=== PATIENT | male | born 1990 | race Two or more races ===

== ENCOUNTER 2019-12-02 19:01 | Emergency (ER) | payer SELFPAY ==
--- NOTE | 2019-12-02 20:25 | NUR ---
CALLED TO TRIAGE NO ANSWER
--- NOTE | 2019-12-02 20:45 | NUR ---
LEFT WIHTOUT BEING TRIAGED
== END 2019-12-02 20:45 | disposition left against medical advice (07) ==
LOC: ER 19:10
DX: Z53.21 Procedure and treatment not carried out due to patient leaving prior to being seen by health care provider (principal); R05 Cough

== ENCOUNTER 2019-12-31 21:46 | Emergency (ER) | payer MEDICAID ==
[~2019-12-31] VITALS: Ht 200.7 cm; Wt 149.7 kg
[2019-12-31 21:53] VITALS: BP 151/87
== END 2019-12-31 23:32 | disposition home or self-care (01) ==
LOC: ER 21:52
DX: H61.22 Impacted cerumen, left ear (principal); R03.0 Elevated blood-pressure reading, without diagnosis of hypertension

== ENCOUNTER 2020-05-19 14:12 | Emergency (ER) | payer MEDICAID, OTHER ==
[~2020-05-19] VITALS: Ht 203.2 cm; Wt 155.6 kg
--- NOTE | 2020-05-19 14:14 | NUR ---
PT BIBRA FROM HOME TO ER BED 01. PER EMS REPORT, WITNESSED SEIZURE BY FRIENDS. PT ENDORSES THAT HE STARTED HAVING SEIZURES 2 MONTHS AGO AND HE HAD A TOTAL OF 3 SEIZURES THE PAST 2 WEEKS. PT IS NOT ON ANY SEIZURE MEDS. PT IIS ALERT AND VERBALLY RESPONSIVE. GOWNED AND PLACED ON MONITOR. STABLE VITALS. AWAITING MD SON.
--- NOTE | 2020-05-19 14:46 | NUR ---
DR MERCER AT BEDSIDE FOR EVAL.
[2020-05-19] MEDS ORDERED: IV NS 0.9% 1,000 ML BAG IV ONE (15:00)
[2020-05-19] MEDS ORDERED: LEVETIRACETAM (500MG) 500 MG in IV NS 0.9% 100 ML IV ONE (15:00)
--- NOTE | 2020-05-19 15:04 | NUR ---
PT TO RADIOLOGY FOR HEAD CT SCAN VIA [facility].
[2020-05-19 15:30] LABS: BASOPHILS # (AUTO) 0.1 /CMM (0.0-0.2); BASOPHILS % (AUTO) 0.5 % (0.0-2.0); EOSINOPHILS % (AUTO) 1.7 % (0.0-6.0); HEMATOCRIT 44 % (39-51); HEMOGLOBIN 14.8 g/dL (13.5-17.5); LYMPHOCYTES # (AUTO) 2.1 /CMM (0.8-4.8); LYMPHOCYTES % (AUTO) 20.9 % (20.0-44.0); MEAN CORPUSCULAR HGB CONC 33 g/dl (31.0-36.0); MEAN CORPUSCULAR VOLUME 87 fL (80-96); MONOCYTES # (AUTO) 0.7 /CMM (0.1-1.30); MONOCYTES % (AUTO) 7.2 % (2.0-12.0); NEUTROPHILS % (AUTO) 69.7 % (43.0-81.0); PLATELET COUNT (AUTO) 235 /CMM (150-450); RED BLOOD CELL COUNT(AUTO) 5.13 MIL/uL (4.5-6.0); WHITE BLOOD COUNT (AUTO) 10.1 K/uL (4.3-11.0)
[2020-05-19 15:36] LABS: CARBON DIOXIDE 28 mmol/L (21-32); CHLORIDE 103 mmol/L (98-107); GLUCOSE 139 mg/dL (74-106); POTASSIUM 4.1 mmol/L (3.5-5.1); SODIUM SERUM 138 mmol/L (136-145); UREA NITROGEN, BLOOD 10 mg/dL (7-18)
[2020-05-19 15:50] LABS: ALANINE AMINOTRANSFERASE 47 U/L (12-78); ALBUMIN 3.7 g/dL (3.4-5.0); ALKALINE PHOSPHATASE 48 U/L (46-116); ASPARTATE AMINOTRANSFERASE 19 U/L (15-37); BILIRUBIN,DIRECT 0.2 mg/dL (0.0-0.2); BILIRUBIN,TOTAL 0.6 mg/dL (0.2-1.0)
[2020-05-19 15:51] LABS: ALCOHOL, BLOOD < 3 mg/dL (0-0)
--- NOTE | 2020-05-19 16:36 | NUR ---
Patient does not wish to proceed with medical care recommended by Dr. Jasso. Patient given information related to possible complications, up to and including , which could occur as a result of leaving the hospital at this time. Patient verbalizes understanding of risks involved due to leaving against medical advice. Patient has signed AMA form. IV removed. Catheter intact and site benign. Pressure and 4x4 applied to site. No bleeding noted.
[2020-05-19 16:37] VITALS: BP 135/78
== END 2020-05-19 16:38 | disposition left against medical advice (07) ==
LOC: ER 14:15
DX: R56.9 Unspecified convulsions (principal); R41.0 Disorientation, unspecified
CPT/HCPCS: 36415; 70450; 71045; 80048; 80076; 80307; 85025; 85730; 93005; 96361; 96365; 99285; J1953; J7030 ×2; 87081-TC; G0480

== ENCOUNTER 2020-08-24 21:28 | Emergency (ER) | payer OTHER ==
[~2020-08-24] VITALS: Ht 203.2 cm; Wt 145.1 kg
--- NOTE | 2020-08-24 21:28 | NUR ---
BIBEMS C/O SEIZURE X2 WITNESSED BY FAMILY. 1ST SEIZURE @ 1400 PER PT REPORT N/V X2 TODAY. PT AAOX4, NO ORAL TRAUMA, NO URINARY/BOWEL INCONTINENCE NOTED;PT TO BED2, SZ PRECAUTIONS STARTED. -SOB, VSS, NAD NOTED, PENDIGN ER PROVIDER ADELAIDA
[2020-08-24] MEDS ORDERED: LEVETIRACETAM (250 MG) 250 MG TABLET PO ONE ×2 (21:41→22:00)
--- NOTE | 2020-08-24 23:02 | NUR ---
Patient discharged to home in stable condition. Written and verbal after care instructions given. Patient verbalizes understanding of instruction. IV removed. Catheter intact and site benign. Pressure and 4x4 applied to site. No bleeding noted.
[2020-08-25 00:37] VITALS: BP 122/84
== END 2020-08-24 23:02 | disposition home or self-care (01) ==
LOC: ER 21:31
DX: R56.9 Unspecified convulsions (principal)

== ENCOUNTER 2020-09-30 03:42 | Emergency (ER) | payer OTHER ==
[~2020-09-30] VITALS: Ht 203.2 cm; Wt 149.7 kg
[2020-09-30 04:01] VITALS: BP 155/94
[2020-09-30 06:37] LABS: ABG OXYGEN SATURATION 95.6 % (92.0-98.5); ABG PCO2 40.2 mmHg (35.0-45.0); ABG PH 7.406 (7.350-7.450); AaDO2 21.6 mmHg; COHb 0.1 % (0.5-1.5); MetHb 0.4 % (0.0-1.5); O2Hb 95.1 % (94.0-97.0); SITE, ABG Right Radial; VENT MODE, BG Room Air
== END 2020-09-30 05:45 | disposition home or self-care (01) ==
LOC: ER 03:47
DX: T59.811A Toxic effect of smoke, accidental (unintentional), initial encounter (principal); R11.0 Nausea; R51.9 Headache, unspecified; Y92.89 Other specified places as the place of occurrence of the external cause
CPT/HCPCS: 36600

== ENCOUNTER 2021-02-06 18:22 | Emergency (ER) | payer OTHER ==
[~2021-02-06] VITALS: Ht 203.2 cm; Wt 149.7 kg
--- NOTE | 2021-02-06 18:46 | NUR ---
BIBS WITH GIRLFRIEND TO ER BED 4. AAOX4. NOT IN RESP DISTRESS, BREATHING EVEN AND UNLABORED. AMBULATORY. CAME IN FOR L SIDED CHEST PAIN STARTED YESTERDAY. PT RATES PAIN 3/10 SHARP RADIATING TO NECK. DENIES SOB. DENIES N/V/D. PROVIDER AT BEDSIDE FOR EVAL. EKG AT BEDSIDE. ORDERS RECEIVED, NOTED AND CARRIED OUT.
[2021-02-06] MEDS ORDERED: IV NS 0.9% 1,000 ML BAG IV ONE (19:00)
[2021-02-06 19:53] LABS: ALANINE AMINOTRANSFERASE 109 U/L (12-78); ALBUMIN 3.4 g/dL (3.4-5.0); ALKALINE PHOSPHATASE 67 U/L (46-116); ASPARTATE AMINOTRANSFERASE 42 U/L (15-37); BILIRUBIN,DIRECT 0.1 mg/dL (0.0-0.2); BILIRUBIN,TOTAL 0.5 mg/dL (0.2-1.0); CALCIUM, SERUM 9.4 mg/dL (8.5-10.1); CARBON DIOXIDE 29 mmol/L (21-32); CHLORIDE 99 mmol/L (98-107); GLUCOSE 296 mg/dL (74-106); SODIUM SERUM 135 mmol/L (136-145); TOTAL PROTEIN, SERUM 6.7 g/dL (6.4-8.2); UREA NITROGEN, BLOOD 11 mg/dL (7-18)
[2021-02-06 20:02] LABS: BASOPHILS % (AUTO) 0.4 % (0.0-2.0); EOSINOPHILS % (AUTO) 2.6 % (0.0-6.0); HEMATOCRIT 47 % (39-51); HEMOGLOBIN 15.7 g/dL (13.5-17.5); LYMPHOCYTES # (AUTO) 2.6 /CMM (0.8-4.8); LYMPHOCYTES % (AUTO) 22.9 % (20.0-44.0); MEAN CORPUSCULAR HGB CONC 33 g/dl (31.0-36.0); MEAN CORPUSCULAR VOLUME 85 fL (80-96); MONOCYTES # (AUTO) 0.7 /CMM (0.1-1.30); NEUTROPHILS # (AUTO) 7.7 /CMM (1.8-8.9); NEUTROPHILS % (AUTO) 68.1 % (43.0-81.0); PLATELET COUNT (AUTO) 209 /CMM (150-450); RED BLOOD CELL COUNT(AUTO) 5.53 MIL/uL (4.5-6.0); WHITE BLOOD COUNT (AUTO) 11.3 K/uL (4.3-11.0)
[2021-02-07 00:02] VITALS: BP 159/96
== END 2021-02-07 00:02 | disposition home or self-care (01) ==
LOC: ER 18:25
DX: R07.89 Other chest pain (principal); E11.9 Type 2 diabetes mellitus without complications; G40.909 Epilepsy, unspecified, not intractable, without status epilepticus; F10.10 Alcohol abuse, uncomplicated; E66.9 Obesity, unspecified; Y90.9 Presence of alcohol in blood, level not specified; Z68.36 Body mass index [BMI] 36.0-36.9, adult
CPT/HCPCS: 36415; 71045; 80048; 80076; 84484 ×2; 85025; 85378; 93005 ×2; 96360; 99285; J7030

== ENCOUNTER 2021-03-08 00:42 | Emergency (ER) | payer OTHER ==
[~2021-03-08] VITALS: Ht 203.2 cm; Wt 145.1 kg
--- NOTE | 2021-03-08 00:49 | NUR ---
BIBS FOR C/O L SIDED SHRAP CP , 06/14, RADIATING TO LUE AND L SHOULDER SINCE 1499. + SOB. PT AMBULATORY TO BED 1 ER. WAS PLACED ON A MONITOR .
[2021-03-08 01:16] LABS: BASOPHILS # (AUTO) 0.1 /CMM (0.0-0.2); BASOPHILS % (AUTO) 0.6 % (0.0-2.0); EOSINOPHILS % (AUTO) 4.6 % (0.0-6.0); HEMATOCRIT 46 % (39-51); HEMOGLOBIN 15.1 g/dL (13.5-17.5); LYMPHOCYTES # (AUTO) 3.6 /CMM (0.8-4.8); LYMPHOCYTES % (AUTO) 30.4 % (20.0-44.0); MEAN CORPUSCULAR HGB CONC 33 g/dl (31.0-36.0); MEAN CORPUSCULAR VOLUME 86 fL (80-96); MONOCYTES # (AUTO) 0.7 /CMM (0.1-1.30); NEUTROPHILS # (AUTO) 6.9 /CMM (1.8-8.9); NEUTROPHILS % (AUTO) 58.4 % (43.0-81.0); PLATELET COUNT (AUTO) 223 /CMM (150-450); RED BLOOD CELL COUNT(AUTO) 5.29 MIL/uL (4.5-6.0); WHITE BLOOD COUNT (AUTO) 11.7 K/uL (4.3-11.0)
[2021-03-08 01:26] LABS: CALCIUM, SERUM 8.8 mg/dL (8.5-10.1); CARBON DIOXIDE 29 mmol/L (21-32); CHLORIDE 101 mmol/L (98-107); CREATININE 0.9 mg/dL (0.6-1.3); GLUCOSE 212 mg/dL (74-106); SODIUM SERUM 136 mmol/L (136-145); UREA NITROGEN, BLOOD 9 mg/dL (7-18)
[2021-03-08] MEDS ORDERED: CT SWABBABLE VALVE TRANS SET 1 EA INFUS.SET MC ONE (01:35)
[2021-03-08] MEDS ORDERED: IOHEXOL-300 100 ML VIAL IV ONE (01:35)
[2021-03-08] MEDS ORDERED: IV NS 0.9% 250 ML IV ONE (01:35)
--- NOTE | 2021-03-08 01:39 | NUR ---
PATIENT TAKEN TO CAT SCAN
[2021-03-08 01:42] LABS: ALANINE AMINOTRANSFERASE 98 U/L (12-78); ALBUMIN 3.8 g/dL (3.4-5.0); ALKALINE PHOSPHATASE 75 U/L (46-116); ASPARTATE AMINOTRANSFERASE 31 U/L (15-37); B-TYPE NATRIURETIC PEPTIDE 136 PG/ML (0-125); BILIRUBIN,DIRECT 0.1 mg/dL (0.0-0.2); BILIRUBIN,TOTAL 0.3 mg/dL (0.2-1.0); TOTAL PROTEIN, SERUM 6.9 g/dL (6.4-8.2)
--- NOTE | 2021-03-08 01:54 | NUR ---
PATIENT RETURNED FROM CTA SCAN.
--- NOTE | 2021-03-08 03:21 | NUR ---
pt cleared for discharge per dr. medina. pt received discharge instructions. pt verbalized understanding. pt iv removed, iv catheter intact. pressure gauze applied. no active bleeding noted. pt ambulatory with steady gait.
[2021-03-08 03:54] VITALS: BP 144/78
== END 2021-03-08 03:55 | disposition home or self-care (01) ==
LOC: ER 00:44
DX: R07.89 Other chest pain (principal); E11.9 Type 2 diabetes mellitus without complications; F10.10 Alcohol abuse, uncomplicated; Y90.9 Presence of alcohol in blood, level not specified
CPT/HCPCS: 36415; 71045; 71275; 80048; 80076; 83880; 84484; 85025; 85730; 93005 ×2; 99285; J7050; Q9967

== ENCOUNTER 2021-04-08 | Emergency (ER) | payer OTHER ==
[~2021-04-08] VITALS: Ht 203.2 cm; Wt 145.1 kg
[2021-04-08] MEDS: ASPIRIN 81 MG TAB.CHEW PO ONE (00:30)
--- NOTE | 2021-04-08 00:38 | NUR ---
PATIENT TO ER BED 9 C/O LEFT SIDED CHEST PAIN THAT RADIATES SHARPLY TO THE LEFT ARM AND SHOULDERS SINCE 0900 OF TODAY. PATIENT STATES THAT HE TAKES METFORMIN AT HOME. PATIENT IS ALERT AND ORIENTED X4. DENIES SHORTNESS OF BREATH. CONNECTED TO THE CARIDAC MONITOR.
[2021-04-08 00:40] LABS: BASOPHILS # (AUTO) 0.1 /CMM (0.0-0.2); BASOPHILS % (AUTO) 0.4 % (0.0-2.0); EOSINOPHILS % (AUTO) 2.2 % (0.0-6.0); HEMATOCRIT 46 % (39-51); HEMOGLOBIN 15.2 g/dL (13.5-17.5); LYMPHOCYTES # (AUTO) 4.2 /CMM (0.8-4.8); LYMPHOCYTES % (AUTO) 30.3 % (20.0-44.0); MEAN CORPUSCULAR HGB CONC 33 g/dl (31.0-36.0); MEAN CORPUSCULAR VOLUME 86 fL (80-96); MONOCYTES # (AUTO) 0.8 /CMM (0.1-1.30); NEUTROPHILS # (AUTO) 8.4 /CMM (1.8-8.9); NEUTROPHILS % (AUTO) 61.1 % (43.0-81.0); PLATELET COUNT (AUTO) 221 /CMM (150-450); RED BLOOD CELL COUNT(AUTO) 5.34 MIL/uL (4.5-6.0); WHITE BLOOD COUNT (AUTO) 13.7 K/uL (4.3-11.0)
--- NOTE | 2021-04-08 00:41 | NUR ---
XRAY AT BEDSIDE
[2021-04-08 00:46] LABS: CALCIUM, SERUM 9.3 mg/dL (8.5-10.1); CARBON DIOXIDE 27 mmol/L (21-32); CHLORIDE 103 mmol/L (98-107); CREATININE 0.9 mg/dL (0.6-1.3); GLUCOSE 155 mg/dL (74-106); POTASSIUM 3.8 mmol/L (3.5-5.1); SODIUM SERUM 141 mmol/L (136-145); UREA NITROGEN, BLOOD 11 mg/dL (7-18)
[2021-04-08] MEDS ORDERED: ASPIRIN 81 MG TAB.CHEW ONE (00:51)
[2021-04-08 01:03] LABS: ALANINE AMINOTRANSFERASE 74 U/L (12-78); ALBUMIN 3.7 g/dL (3.4-5.0); ALKALINE PHOSPHATASE 64 U/L (46-116); ASPARTATE AMINOTRANSFERASE 25 U/L (15-37); BILIRUBIN,DIRECT 0.1 mg/dL (0.0-0.2); BILIRUBIN,TOTAL 0.4 mg/dL (0.2-1.0); NT-PRO BNP 95 pg/mL (0-125); TOTAL PROTEIN, SERUM 6.9 g/dL (6.4-8.2)
--- NOTE | 2021-04-08 01:53 | NUR ---
IV removed. Catheter intact and site benign. Pressure and 4x4 applied to site. No bleeding noted.
[2021-04-08 01:54] VITALS: BP 134/88
--- NOTE | 2021-04-08 01:54 | NUR ---
Patient discharged to home in stable condition. Written and verbal after care instructions given. Patient verbalizes understanding of instruction.
== END 2021-04-08 01:55 | disposition home or self-care (01) ==
LOC: ER
DX: R07.89 Other chest pain (principal); E11.9 Type 2 diabetes mellitus without complications
CPT/HCPCS: 36415; 71045-TC; 80048-TC; 80076-TC; 83880; 84484-TC; 85025-TC

== ENCOUNTER 2021-09-14 07:32 | Emergency (ER) | payer OTHER ==
[~2021-09-14] VITALS: Ht 203.2 cm; Wt 145.1 kg
--- NOTE | 2021-09-14 07:41 | NUR ---
[email or web address] home c/o dizziness/nausea upon waking up. 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 PT AAOX4, VSS. RR EVEN & UNLABORED. DENIES CP, SOB, NUMBNESS/TINGLING NOTED AT THIS TIME. DR. DRAKE AT FOR EVAL. WILL CONT TO MONITOR.
[2021-09-14] MEDS ORDERED: METOCLOPRAMIDE HCL 10 MG/2 ML VIAL ONE ×2 (07:55→09:05)
[2021-09-14] MEDS ORDERED: IV NS 0.9% 1,000 ML BAG IV ONE ×2 (08:00→09:00)
[2021-09-14] MEDS ORDERED: METOCLOPRAMIDE HCL 10 MG/2 ML VIAL IV ONE ×2 (08:00→09:00)
--- NOTE | 2021-09-14 08:02 | NUR ---
MEDICATED PER ERMD ORDER, PT JAMES WELL.
[2021-09-14 08:09] LABS: BASOPHILS # (AUTO) 0.1 K/uL (0.0-0.2); BASOPHILS % (AUTO) 0.6 % (0.0-2.0); EOSINOPHILS % (AUTO) 3.4 % (0.0-6.0); HEMATOCRIT 47 % (39-51); HEMOGLOBIN 16.2 g/dL (13.5-17.5); LYMPHOCYTES # (AUTO) 3.5 K/uL (0.8-4.8); LYMPHOCYTES % (AUTO) 31.5 % (20.0-44.0); MEAN CORPUSCULAR HGB CONC 34 g/dl (31.0-36.0); MEAN CORPUSCULAR VOLUME 86 fL (80-96); MONOCYTES # (AUTO) 0.7 K/uL (0.1-1.30); NEUTROPHILS # (AUTO) 6.5 K/uL (1.8-8.9); NEUTROPHILS % (AUTO) 58.5 % (43.0-81.0); PLATELET COUNT (AUTO) 210 K/uL (150-450); RED BLOOD CELL COUNT(AUTO) 5.54 MIL/uL (4.5-6.0); WHITE BLOOD COUNT (AUTO) 11.1 K/uL (4.3-11.0)
[2021-09-14 08:32] LABS: ALANINE AMINOTRANSFERASE 54 U/L (12-78); ALBUMIN 3.6 g/dL (3.4-5.0); ALKALINE PHOSPHATASE 105 U/L (46-116); ASPARTATE AMINOTRANSFERASE 3 U/L (15-37); BILIRUBIN,DIRECT 0.1 mg/dL (0.0-0.2); BILIRUBIN,TOTAL 0.3 mg/dL (0.2-1.0); CALCIUM, SERUM 9.2 mg/dL (8.5-10.1); CARBON DIOXIDE 25 mmol/L (21-32); CHLORIDE 99 mmol/L (98-107); CREATININE 0.9 mg/dL (0.6-1.3); POTASSIUM 4.1 mmol/L (3.5-5.1); SODIUM SERUM 136 mmol/L (136-145); UREA NITROGEN, BLOOD 12 mg/dL (7-18)
[2021-09-14 08:33] LABS: GLUCOSE 428 mg/dL (74-106)
[2021-09-14] MEDS ORDERED: INSULIN REGULAR, HUMAN 100 UNIT/ML 10 ML VIAL ONE (08:47)
[2021-09-14] MEDS ORDERED: INSULIN REGULAR, HUMAN 100 UNIT/ML 10 ML VIAL SQ ONE (09:00)
[2021-09-14 11:20] VITALS: BP 131/84
--- NOTE | 2021-09-14 11:20 | NUR ---
The patient is alert and orieneted x4. Denies pain. In room air and denies SOB. Respiration regular and unlabored. Denies N/V. IV removed. Catheter intact and site benign. Pressure and 4x4 applied to site. No bleeding noted.Patient discharged to home in stable condition. Written and verbal after care instructions given. Patient verbalizes understanding of instruction.
[2021-09-14 12:08] LABS: LIPASE 121 U/L (73-393)
== END 2021-09-14 11:21 | disposition home or self-care (01) ==
LOC: ER 07:35
DX: E11.9 Type 2 diabetes mellitus without complications (principal); R42 Dizziness and giddiness; I10 Essential (primary) hypertension
CPT/HCPCS: 36415; 80048; 80076; 82010; 82962; 83690; 84484; 85025; 93005; 96361; 96372; 96374; 96376; 99284; J1815; J2765 ×2; J7030 ×2

== ENCOUNTER 2021-11-22 21:58 | Emergency (ER) | payer OTHER ==
[~2021-11-22] VITALS: Ht 203.2 cm; Wt 145.1 kg
--- NOTE | 2021-11-22 22:27 | NUR ---
BIBS FOR C/O COUGH AND UPPER BACK PAIN X 3 DAYS. PT HAS TESTED -COVID MULTIPLE TIMES. PT BREATHING EVEN AND UNLABORED AND ALL V/S STABLE
[2021-11-22] MEDS ORDERED: IBUPROFEN 400 MG TABLET ONE (22:29)
[2021-11-22] MEDS ORDERED: IBUPROFEN 400 MG TABLET PO ONE (22:30)
--- NOTE | 2021-11-22 23:21 | NUR ---
Patient discharged to home in stable condition. Written and verbal after care instructions given. Patient verbalizes understanding of instruction.
[2021-11-22 23:25] VITALS: BP 166/93
== END 2021-11-22 23:25 | disposition home or self-care (01) ==
LOC: ER 21:59
DX: R05.9 Cough, unspecified (principal); I10 Essential (primary) hypertension; E11.9 Type 2 diabetes mellitus without complications
CPT/HCPCS: 71045-TC

== ENCOUNTER 2021-12-15 21:11 | Emergency (ER) | payer OTHER ==
[~2021-12-15] VITALS: Ht 203.2 cm; Wt 136.1 kg
--- NOTE | 2021-12-15 22:54 | NUR ---
BIBS C/O SOB +COUGH DERRICK NECK, SHOULDER AND BACK PAIN X1DAY. PATIENT ALERT AND ORIENTED X3. AMBULATORY C/O SOB SATTING AT 98%. PLACED IN BED 06 ON MONITOR AND POX.
[2021-12-15] MEDS ORDERED: IBUPROFEN 400 MG TABLET ONE (22:57)
[2021-12-15] MEDS ORDERED: IBUPROFEN 400 MG TABLET PO ONE (23:00)
--- NOTE | 2021-12-15 23:00 | NUR ---
X RAY AT BEDSIDE
--- NOTE | 2021-12-15 23:23 | NUR ---
Patient discharged to home in stable condition. Written and verbal after care instructions given. Patient verbalizes understanding of instruction.
[2021-12-15 23:24] VITALS: BP 136/94
== END 2021-12-15 23:25 | disposition home or self-care (01) ==
LOC: ER 21:15
DX: R05.9 Cough, unspecified (principal); I10 Essential (primary) hypertension; E11.9 Type 2 diabetes mellitus without complications; Q87.40 Marfan syndrome, unspecified; Z82.0 Family history of epilepsy and other diseases of the nervous system
CPT/HCPCS: 71045-TC

== ENCOUNTER 2023-01-15 11:47 | Emergency (ER) | payer OTHER ==
[~2023-01-15] VITALS: Ht 203.2 cm; Wt 131.5 kg
--- NOTE | 2023-01-15 11:47 | NUR ---
BIBS FOR RIGHT SIDE NECK PAIN. A/O X 3
[2023-01-15] MEDS ORDERED: KETOROLAC TROMETHAMINE INJ 30 MG/ML VIAL IM ONE (12:30)
[2023-01-15] MEDS ORDERED: KETOROLAC TROMETHAMINE 15 MG/ML VIAL ONE (12:37)
[2023-01-15] MEDS ORDERED: CEPH500C2 PO (13:51)
[2023-01-15] MEDS ORDERED: SULF1TAB48 PO (13:51)
[2023-01-15] MEDS ORDERED: IBUP-1955 PO (13:51)
--- NOTE | 2023-01-15 14:10 | NUR ---
Patient discharged to home in stable condition. Written and verbal after care instructions given. Patient verbalizes understanding of instruction.
[2023-01-15 14:11] VITALS: BP 145/89
== END 2023-01-15 14:11 | disposition home or self-care (01) ==
LOC: ER 11:51
DX: L02.11 Cutaneous abscess of neck (principal); I10 Essential (primary) hypertension; E11.9 Type 2 diabetes mellitus without complications; Z79.899 Other long term (current) drug therapy
CPT/HCPCS: 99284; 10060; 96372; 76536; A6403 ×2; A6407; J1885

== ENCOUNTER 2023-01-17 11:39 | Emergency (ER) | payer OTHER ==
[~2023-01-17] VITALS: Ht 203.2 cm; Wt 131.5 kg
[~2023-01-17 11:39] MED LIST: CEPH500C2 PO; IBUP-1955 PO; SULF1TAB48 PO
[2023-01-17 11:42] VITALS: BP 135/66
--- NOTE | 2023-01-17 12:24 | NUR ---
Patient discharged to home in stable condition. Written and verbal after care instructions given. Patient verbalizes understanding of instruction.
== END 2023-01-17 12:24 | disposition home or self-care (01) ==
LOC: ER 11:43
DX: L02.11 Cutaneous abscess of neck (principal); I10 Essential (primary) hypertension; E11.9 Type 2 diabetes mellitus without complications; Z79.899 Other long term (current) drug therapy